=== PATIENT | male | born 1995 | race Caucasian/White ===

== ENCOUNTER 2023-12-20 20:32 | Emergency (ER) | payer OTHER, SELFPAY ==
[2023-12-20 20:43] VITALS: BP 168/97
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
[2023-12-20 23:08] VITALS: BMI 25.2
[2023-12-20 23:10] VITALS: BP 121/71
[2023-12-20] MEDS: ADACEL 0.5 ML IM (23:24)
== END 2023-12-20 23:33 | disposition home or self-care (01) ==
LOC: EMR 20:32
PROVIDERS: EMERGENCY PHYSICIAN Emergency Medicine; FAMILY PHYSICIAN Family Medicine
DX: S01.81XA Laceration without foreign body of other part of head, initial encounter (principal); S01.111A Laceration without foreign body of right eyelid and periocular area, initial encounter; S60.512A Abrasion of left hand, initial encounter; S60.511A Abrasion of right hand, initial encounter; S80.211A Abrasion, right knee, initial encounter; S50.311A Abrasion of right elbow, initial encounter; R42 Dizziness and giddiness; V18.4XXA Pedal cycle driver injured in noncollision transport accident in traffic accident, initial encounter; Y93.55 Activity, bike riding; Z23 Encounter for immunization; F17.200 Nicotine dependence, unspecified, uncomplicated
CPT/HCPCS: 99282; 12015; 90471; 90715

== ENCOUNTER 2024-05-26 02:13 | Emergency (ER) | payer OTHER, SELFPAY ==
[2024-05-26 02:17] VITALS: BP 164/95
[2024-05-26 02:24] VITALS: BMI 25.3
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
[2024-05-26 02:41] VITALS: BP 139/91
== END 2024-05-26 02:58 | disposition home or self-care (01) ==
LOC: EMR 02:13
PROVIDERS: EMERGENCY PHYSICIAN Emergency Medicine
DX: S01.81XA Laceration without foreign body of other part of head, initial encounter (principal); W01.0XXA Fall on same level from slipping, tripping and stumbling without subsequent striking against object, initial encounter; F17.200 Nicotine dependence, unspecified, uncomplicated
CPT/HCPCS: 12011; 99282

== ENCOUNTER 2024-10-07 05:10 | Emergency (ER) | payer SELFPAY ==
[2024-10-07 05:17] VITALS: BP 171/98
[2024-10-07 05:27] VITALS: BMI 26.1
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
[2024-10-07] MEDS: KEFLEX 500 MG PO (08:06)
[2024-10-07] MEDS: TORADOL 30 MG IM (08:06)
== END 2024-10-07 08:30 | disposition home or self-care (01) ==
LOC: EMR 05:10
PROVIDERS: EMERGENCY PHYSICIAN Emergency Medicine
DX: S01.511A Laceration without foreign body of lip, initial encounter (principal); V86.55XA Driver of 3- or 4- wheeled all-terrain vehicle (ATV) injured in nontraffic accident, initial encounter; F17.200 Nicotine dependence, unspecified, uncomplicated
CPT/HCPCS: 12011; 99284; 96372; 70450; 70486; 72125